=== PATIENT | female | born 1960 | race Caucasian/White ===

== ENCOUNTER 2018-07-30 05:25 | Emergency (ER) | payer OTHER ==
[~2018-07-30] VITALS: Ht 165.1 cm; Wt 90.3 kg
--- NOTE | ~2018-07-30 | EKG ---
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 : 1960 Requested By: Lizzeth Oquendo Order Number: [id number] MD: Sancho Long Measurements Intervals [place] Rate: 81 P: 36 [place]: 163 QRS: 45 QRSD: 86 T: 234 QT: 438 QTc: 509 Interpretive Statements Sinus rhythm Probable LVH with secondary repol abnrm Borderline prolonged QT interval No previous ECG available for comparison Electronically Signed On 07-30-2018 11:34:06 CDT by Sancho Long [email or web address] <ELECTRONICALLY SIGNED> By: Sancho Long MD, [facility] 07/30/18 1134 0544 0544 Sancho Long MD, FACC /EPI
[2018-07-30 06:06] LABS: ABSOLUTE NEUTROPHILS 7.9 thou/uL (1.4-8.2); BASOPHILS 0.6 % (0.0-2.0); EOSINOPHILS 1.2 % (0.0-3.0); HEMATOCRIT 41.6 % (37.0-47.0); HEMOGLOBIN 14.4 gm/dL (12.0-15.0); MCH 31.9 pg (26.0-34.0); MCHC 34.5 g/dL (28.0-37.0); MCV 92.2 fL (80.0-100.0); MONOCYTES 4.9 % (1.0-8.0); PLATELET COUNT 257 thou/uL (150-400); POLYS 66.3 % (36.0-66.0); RBC 4.51 mil/uL (4.20-5.00); RDW 15.1 % (10.5-14.5); WBC 11.9 thou/uL (4.0-11.0)
[2018-07-30 06:19] LABS: ANION GAP 10 mmol/L (7-16); BUN 24 mg/dL (7-18); CALCIUM 9.2 mg/dL (8.5-10.1); CHLORIDE 103 mmol/L (98-107); CO2 25 mmol/L (21-32); CREATININE 1.4 mg/dL (0.6-1.0); GLUCOSE 106 mg/dL (74-106); POTASSIUM 3.5 mmol/L (3.5-5.1); SODIUM 138 mmol/L (136-145)
[2018-07-30 06:28] LABS: TROPONIN-I <0.06 ng/mL (<0.06)
[2018-07-30] MEDS ORDERED: NORCO 5-325 TA1 EACH PO (06:55)
[2018-07-30 08:18] VITALS: BP 106/59
== END 2018-07-30 08:18 | disposition home or self-care (01) ==
LOC: ER 05:25
PROVIDERS: Student in an Organized Health Care Education/Training Program
DX: I42.9 Cardiomyopathy, unspecified (principal); Z88.5 Allergy status to narcotic agent; Z90.49 Acquired absence of other specified parts of digestive tract; Z90.710 Acquired absence of both cervix and uterus

== ENCOUNTER → 2018-09-29 | Outpatient (CLI) | payer OTHER ==
[~2018-09-29] MED LIST: NORCO 5-325 TA1 EACH PO
== END ==
LOC: RAD 13:20
DX: J90 Pleural effusion, not elsewhere classified (principal); J98.11 Atelectasis; Z98.890 Other specified postprocedural states

== ENCOUNTER 2019-02-28 06:54 | Emergency (ER) | payer OTHER ==
[~2019-02-28] VITALS: Ht 170.2 cm; Wt 84.4 kg
[2019-02-28 07:13] LABS: ABSOLUTE NEUTROPHILS 3.4 thou/uL (1.4-8.2); BASOPHILS 0.5 % (0.0-2.0); HEMATOCRIT 43.6 % (37.0-47.0); LYMPHOCYTES 38.7 % (24.0-44.0); MCHC 34.4 g/dL (28.0-37.0); MCV 87.2 fL (80.0-100.0); MONOCYTES 5.2 % (1.0-8.0); PLATELET COUNT 274 thou/uL (150-400); POLYS 53.6 % (36.0-66.0); RDW 15.6 % (10.5-14.5); WBC 6.3 thou/uL (4.0-11.0)
[2019-02-28 07:30] LABS: ANION GAP 12 mmol/L (7-16); BUN 17 mg/dL (7-18); CALCIUM 9.2 mg/dL (8.5-10.1); CHLORIDE 107 mmol/L (98-107); CO2 22 mmol/L (21-32); CREATININE 1.4 mg/dL (0.6-1.0); GLUCOSE 114 mg/dL (74-106); POTASSIUM 3.6 mmol/L (3.5-5.1); SODIUM 141 mmol/L (136-145)
[2019-02-28 07:40] LABS: ALBUMIN 3.7 g/dL (3.4-5.0); SGOT 17 U/L (15-37); SGPT 16 U/L (30-65); TOTAL BILIRUBIN 0.5 mg/dL (<0.1-1.0); TROPONIN-I <0.06 ng/mL (<0.06)
[2019-02-28] MEDS ORDERED: ASPIR 8181 MG PO (07:51)
[2019-02-28] MEDS ORDERED: IMDUR 30 MG TAB30 M1 PO (07:52)
[2019-02-28] MEDS ORDERED: LOPRESSOR25 PO (07:52)
[2019-02-28] MEDS ORDERED: LASIX 20 MG TAB20 MG PO (07:52)
[2019-02-28] MEDS ORDERED: POTASSIUM20 PO (07:52)
[2019-02-28] MEDS ORDERED: RANEXA500 MG PO (07:53)
[2019-02-28] MEDS ORDERED: TOPAMAX 25 MG T25 M1 PO (07:53)
[2019-02-28] MEDS ORDERED: AMBIEN 5 MG TABL5 M1 PO (07:53)
[2019-02-28] MEDS ORDERED: MOBIC15 MG PO (10:43)
[2019-02-28] MEDS ORDERED: VALIUM5 MG PO (10:43)
[2019-02-28 11:06] VITALS: BP 122/86
--- NOTE | 2019-02-28 15:16 | EKG ---
[place] [address] [facility] [employer] [place] [address] ELECTROCARDIOGRAM REPORT Name: CODY YUN Room #: [facility] [id number] ������������������ Admission: 02/28/19 ������������������ Attend Phys: Discharge: 02/28/19 ������������������ Date of : 64 Report #: [id number] ����������������������������������������������������������������� [id number] THIS REPORT FOR: //name// [facility] ED Test Date: 2019-02-28 Test Time: 07:01:25 Pat Name: CODY YUN Department: Room: Gender: F [employer] 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 : 1960 Requested By: Asya Meyers Order Number: [id number] MD: Sancho Long Measurements Intervals [place] Rate: 75 P: 23 SD: 144 QRS: 34 QRSD: 83 T: 123 QT: 444 QTc: 496 Interpretive Statements Sinus rhythm Left ventricular hypertrophy Nonspecific ST and T abnormalities, lateral leads Borderline prolonged QT interval Baseline wander in lead(s) V1 Compared to ECG 07/30/2018 05:44:36 ST and T wave abnormality less pronounced Electronically Signed On 02-28-2019 15:16:11 CDT by Sancho Long [email or web address] ��������������������������������������������� <ELECTRONICALLY SIGNED> ���������������������������������������� By: Sancho Long MD, [facility] ��������������������������������������������� 02/28/19 1516 0701 0701 Sancho Long MD, [facility] /EPI
== END 2019-02-28 11:07 | disposition home or self-care (01) ==
LOC: ER 06:54
PROVIDERS: Family Medicine
DX: R07.89 Other chest pain (principal); R10.84 Generalized abdominal pain; M25.512 Pain in left shoulder; I42.9 Cardiomyopathy, unspecified; Z88.5 Allergy status to narcotic agent; Z90.49 Acquired absence of other specified parts of digestive tract; Z90.710 Acquired absence of both cervix and uterus; V89.2XXA Person injured in unspecified motor-vehicle accident, traffic, initial encounter; Y92.89 Other specified places as the place of occurrence of the external cause; Y93.89 Activity, other specified; Y99.8 Other external cause status

== ENCOUNTER → 2019-08-30 | Outpatient (CLI) | payer OTHER ==
[~2019-08-30] MED LIST changes: +AMBIEN 5 MG TABL5 M1 PO; +ASPIR 8181 MG PO; +IMDUR 30 MG TAB30 M1 PO; +LASIX 20 MG TAB20 MG PO; +LOPRESSOR25 PO; +MOBIC15 MG PO; +POTASSIUM20 PO; +RANEXA500 MG PO; +TOPAMAX 25 MG T25 M1 PO; +VALIUM5 MG PO
== END ==
LOC: RAD 09:23
DX: R06.00 Dyspnea, unspecified (principal)

== ENCOUNTER → 2021-06-05 | Outpatient (CLI) | payer OTHER | LOC: SJCVCIMAG 07:53 | PROVIDERS: ATTEND Internal Medicine | DX: M79.605 Pain in left leg (principal); M79.604 Pain in right leg; M79.89 Other specified soft tissue disorders ==

== ENCOUNTER → 2021-06-22 | Outpatient (CLI) | payer OTHER | LOC: HYPER 08:17 | PROVIDERS: ATTEND Emergency Medicine | DX: R60.0 Localized edema (principal); M79.604 Pain in right leg; G47.00 Insomnia, unspecified; E66.9 Obesity, unspecified; I10 Essential (primary) hypertension; I25.10 Atherosclerotic heart disease of native coronary artery without angina pectoris; Z68.38 Body mass index [BMI] 38.0-38.9, adult ==

== ENCOUNTER → 2021-06-30 | Outpatient (CLI) | payer OTHER | LOC: HYPER 08:06 | PROVIDERS: ATTEND Emergency Medicine | DX: R60.0 Localized edema (principal); M79.604 Pain in right leg; I10 Essential (primary) hypertension; I25.10 Atherosclerotic heart disease of native coronary artery without angina pectoris; G47.00 Insomnia, unspecified; Z79.82 Long term (current) use of aspirin; Z79.899 Other long term (current) drug therapy ==

== ENCOUNTER → 2021-07-21 | Outpatient (CLI) | payer OTHER | LOC: HYPER 08:29 | PROVIDERS: ATTEND Emergency Medicine | DX: R60.0 Localized edema (principal); I89.0 Lymphedema, not elsewhere classified; E66.9 Obesity, unspecified; M79.604 Pain in right leg; I10 Essential (primary) hypertension; I25.10 Atherosclerotic heart disease of native coronary artery without angina pectoris; G47.00 Insomnia, unspecified; Z79.82 Long term (current) use of aspirin; Z79.899 Other long term (current) drug therapy; Z68.38 Body mass index [BMI] 38.0-38.9, adult ==